=== PATIENT | male | born 1950 | race Caucasian/White ===

== ENCOUNTER 2016-06-28 20:59 | Emergency (ER) | payer MEDICARE ==
[~2016-06-28 20:59] MED LIST: ALDACTONE25 MG PO; BAYER CHEWABLE81 MG PO; FUROSEMIDE20 MG PO; GLUCOPHAGE1000 MG PO; IBUPROFEN200 MG PO; INVOKANA300 MG PO; METOPROLOL TAR100 M1 PO; NEURONTIN600 MG PO; NORVASC10 MG PO; NOVOLIN 70/30 110 ML SC; NOVOLIN R100 U/ML SQ; PLAVIX75 MG PO; TOPROL XL100 MG PO; TRAZODONE HCL150 MG PO; ULTRAM50 MG PO; VITAMIN B-1000 MCG/M IM; WELCHOL625 MG PO; WELLBUTRIN XL150 M1 PO; XANAX1 MG PO; ZETIA10 MG PO
== END 2016-06-29 00:52 | disposition home or self-care (01) ==
LOC: D.ER 20:59
DX: S09.90XA Unspecified injury of head, initial encounter (principal); V59.9XXA Occupant (driver) (passenger) of pick-up truck or van injured in unspecified traffic accident, initial encounter; Y93.89 Activity, other specified; Y92.410 Unspecified street and highway as the place of occurrence of the external cause; S16.1XXA Strain of muscle, fascia and tendon at neck level, initial encounter; S39.012A Strain of muscle, fascia and tendon of lower back, initial encounter; S12.600A Unspecified displaced fracture of seventh cervical vertebra, initial encounter for closed fracture; F17.200 Nicotine dependence, unspecified, uncomplicated

== ENCOUNTER → 2016-07-17 09:42 | Outpatient (CLI) | payer MEDICARE ==
[2016-02-27 10:43] VITALS: BMI 26.8
== END | disposition home or self-care (01) ==
LOC: D.RAD 09:42
DX: S32.009A Unspecified fracture of unspecified lumbar vertebra, initial encounter for closed fracture (principal)

== ENCOUNTER 2016-07-25 18:08 | Inpatient (IN) | payer MEDICARE ==
[~2016-07-25] VITALS: Ht 170.2 cm; Wt 70.9 kg
--- NOTE | ~2016-07-25 | OP ---
PATIENT NAME: MICHELLE CURRY JR MEDICAL RECORD: [id number] :54 LOCATION:D.M2 D.2109 ADMISSION DATE:07/27/16 SURGEON: JAILENE VELAZQUEZ MD DATE OF OPERATION: 08/05/2016 PREOPERATIVE DIAGNOSES: 1. Right foot cellulitis/abscess. 2. Diabetes mellitus. 3. Coronary artery disease. 4. Hypertension. 5. Hyperlipidemia. 6. Chronic obstructive pulmonary disease. 7. Tobacco dependence syndrome. POSTOPERATIVE DIAGNOSES: 1. Right foot cellulitis/abscess. 2. Diabetes mellitus. 3. Coronary artery disease. 4. Hypertension. 5. Hyperlipidemia. 6. Chronic obstructive pulmonary disease. 7. Tobacco dependence syndrome. PROCEDURE: I&D of the right foot. SURGEON: Jailene Velazquez MD REPORT OF PROCEDURE: The right foot was prepped and draped in sterile fashion. A longitudinal incision was made on the distal anterior aspect of the right foot overlying the space between the second and third toe. This patient had a large amount of pressurized purulence present. This was cultured times 2. The area undermined significantly, so we extended the incision, and I could see almost a skeletonization of the tendon and the bones. We irrigated out the wound thoroughly with peroxide and saline solution until we had a good clear return of fluid. We then packed the wound with 2 inch Kerlix dipped in peroxide. This was then covered with 4 x 4's and Kerlix. COMPLICATIONS: None. CONDITION: Stable. ANESTHESIA: General endotracheal. BLOOD LOSS: Minimal. TRANSINT:[id number] Voice Confirmation ID: [id number] DOCUMENT ID: [id number] OPERATIVE REPORT [id number] MICHELLE CURRY JR, CHRISTIAN MD CC: [id number] DICTATION DATE: 08/05/161739 RUBBER PRESS OPERATOR: 08/06/16 0022 ADM IN [address] [place] [address]
[2016-07-25 19:16] LABS: BASOPHILS 0.1 % (0-2); EOSINOPHILS 0.1 % (0-7); HEMATOCRIT 39.4 % (42.0-54.0); HEMOGLOBIN 13.7 g/dL (13.5-17.5); IMMATURE GRANULOCYTES 0.4 % (0-5); LYMPHOCYTES 9.3 % (15-50); MCH 33.9 pg (26.0-34.0); MCHC 34.8 g/dL (31.0-37.0); MCV 97.5 fL (80.0-100.0); MEAN PLATELET VOLUME 12.2 fL (7.4-10.4); MONOCYTES 10.1 % (2-11); RBC 4.04 10x6/uL (4.20-6.10); WBC 12.3 10x3/uL (4.8-10.8)
[2016-07-25 19:20] LABS: PLATELET COUNT 136 10x3/uL (130-400)
[2016-07-25 19:48] LABS: ALKALINE PHOSPHATASE 86 U/L (46-116); ALT (SGPT) 9 U/L (10-68); BILIRUBIN - TOTAL 0.29 mg/dL (0.2-1.3); CALC OSMOLALITY 279 mosm/kg (275-300); CALCIUM 9.9 mg/dL (8.5-10.1); CARBON DIOXIDE 28.1 mmol/L (21.0-32.0); CHLORIDE - SERUM 95 mmol/L (98-107); GLUCOSE 258 mg/dL (74-106); POTASSIUM - SERUM 4.8 mmol/L (3.5-5.1); PROTEIN - SERUM 8.4 g/dL (6.4-8.2); SODIUM 132 mmol/L (136-145); UREA NITROGEN 30 mg/dL (7-18); eGFR NON AFRICAN AMERICAN 80 mL/min (90-120)
--- NOTE | 2016-07-25 21:18 | NUR ---
RECIVED REPORT FROM MERARY Bunn RN.
--- NOTE | 2016-07-25 21:50 | NUR ---
RECIEVED TO ROOM 2109 FROM E.R. VIA WC. VITALS STABLE. IV TO LEFT ARM SL, SITE CLEAN AND DRY. FAMILY AT BED SIDE, BED, LOW CL IN REACH, WILL CONT TO MONITOR.
[2016-07-25] MEDS ORDERED: NORCO 7.5/325 T1 TA1 PO (23:29)
[2016-07-26] VITALS (7 sets, daily range): BP systolic 103–132; BP diastolic 51–74; BMI 29.7
--- NOTE | 2016-07-26 00:18 | NUR ---
SHERIFF'S SERGEANT AT BED SIDE TO OBTAIN VITALS. WILL CONT PLAN OF CARE.
--- NOTE | 2016-07-26 03:54 | NUR ---
UP WITH ASSIST TO BR.
--- NOTE | 2016-07-26 04:15 | NUR ---
PT ASKING FOR PAIN MEDICATION FOR HIS FOOT, PAGE OUT TO DR CARABALLO.
--- NOTE | 2016-07-26 07:05 | NUR ---
RECEIVED REPORT. ASSUMED CARE OF PATIENT. RESTING IN SUPINE POSITION WITH EYES CLOSED. RESP EVEN AND UNLABORED. EASILY AROUSED. TOP OF RIGHT FOOT RED, WARM TO TOUCH WITH SMALL SCRATCH TO TOP CENTER OF FOOT. NO DISTRESS. CALL LIGHT WITHIN REACH.
--- NOTE | 2016-07-26 09:01 | NUR ---
MEDICATED FOR PAIN AT THIS TIME. NO DISTRESS. PAIN TO RIGHT FOOT.
--- NOTE | 2016-07-26 09:24 | NUR ---
PATIENTS DAUGHTER HERE INQUIRING HOW HER FATHER DID LAST NIGHT. SHE STATES SHE IS WONDERING BECAUSE HE WAS CONFUSED WHEN HE CAME IN YESTERDAY. SHE STATES THAT PATIENT WENT TO SEE IN [place] ON WEDNESDAY AND INSTEAD OF GOING AND GETTING HIS MEDICINE, PATIENT WENT HOME AND LAID DOWN. PRIOR TO LAYING DOWN PATIENT LEFT HIS PHONE IN THE LIVING ROOM. PATIENT WAS UNABLE TO GET OOB AFTER LYING DOWN. PATIENT HAD INCONTINENT EPISODE ON BED AT HOME. PATIENT ROLLED OUT OF BED AND CRAWLED TO LIVING ROOM TO GET HIS PHONE AND THAT IS WHEN HE STARTED CALLING HIS DAUGHTERS FOR HELP. PATIENTS DAUGHTER STATES THAT HIS BLOOD GLUCOSE LEVEL IS ALWAYS ELEVATED IN 400-500 RANGE AND THAT HE FREQUENTLY HAS A UTI DUE TO THE GLUCOSE. SHE ALSO STATES THAT PATIENT CAN BECOME AGGRESSIVE AND MEAN IF HYDROCODONES ARE ADMINISTERED TO PATIENT. THANKED DAUGHTER FOR ALL OF THIS INFORMATION. UA TAKEN TO LAB AND URINE CULTURE ADDED. PATIENT RESTING IN BED AT THIS TIME. DAUGHTER AT BEDSIDE. CALL LIGHT WITHIN REACH. NO DISTRESS. NO AGGRESSIVE BEHAVIORS.
[2016-07-26 09:46] LABS: APPEARANCE CLEAR (CLEAR); BILIRUBIN NEGATIVE (NEGATIVE); COLOR YELLOW (YELLOW); GLUCOSE 500 mg/dL (NEGATIVE); KETONE SMALL mg/dL (NEGATIVE); LEUKOCYTE ESTERASE NEGATIVE (NEGATIVE); NITRITE NEGATIVE (NEGATIVE); PROTEIN NEGATIVE (NEGATIVE); SPECIFIC GRAVITY 1.015 (1.005-1.020); UROBILINOGEN NORMAL (NORMAL)
--- NOTE | 2016-07-26 12:29 | NUR ---
FSBS 308. 8 UNITS HUMALOG ADMINISTERED AT THIS TIME.
--- NOTE | 2016-07-26 14:37 | NUR ---
MEDICATED FOR PAIN AT THIS TIME. NO DISTRESS.
--- NOTE | 2016-07-26 15:37 | NUR ---
PATIENT LEFT UNIT VIA WHEELCHAIR FOR CT OF NECK. NO DISTRESS UPON LEAVING UNIT.
--- NOTE | 2016-07-26 17:29 | NUR ---
MEDICATED FOR TEMP 102.8 AT THIS TIME.
--- NOTE | 2016-07-26 17:32 | NUR ---
PAGED TO INFORM HIM OF THE SPIKE IN TEMP OF 102.8 AND ASK IF HE WANTS BLOOD CULTURES DRAWN. AWAITING RETURN CALL
--- NOTE | 2016-07-26 17:34 | NUR ---
RECEIVED CALL BACK FROM AND RECEIVED ORDERS TO CONSULT . INFORMED THAT BLODD CULTURES WERE DRAWN YESTERDAY AT 1900 BUT PATIENT JUST NOW SPIKING TEMP. INFORMED THAT PATIENT WAS MEDICATED WITH TYLENOL FOR TEMP OF 102.8. THANKED FOR RETURNING CALL.
--- NOTE | 2016-07-26 17:56 | NUR ---
FSBS 234. 4 UNITS HUMALOG ADMINISTERED PER SLIDING SCALE.
--- NOTE | 2016-07-26 18:20 | NUR ---
MEDICATED FOR PAIN AT THIS TIME. NO DISTRESS.
--- NOTE | 2016-07-26 18:33 | NUR ---
TEMP REASSESSED. ORAL TEMP 102.4
--- NOTE | 2016-07-26 19:36 | NUR ---
RESUMED CARE OF PT, LYING IN BED RESPIRATIONS EVEN AND UNLABORED ON 2LPM VIA NC. LEFT FOREATM INFUSING NS @ 75. RIGHT FOOT IS RED AND TENDER TO THE TOUCH. OPEN TO AIR. NO NEEDS VOICED AT THIS TIME. CALL LIGHT IN REACH. WILL CONTINUE TO MONITOR. SEE NURSE ASSESSMENT.
[2016-07-27] VITALS: BP 121/68
[2016-07-27 04:00] VITALS: BP 106/49
[2016-07-27 05:33] LABS: BASOPHILS 0.1 % (0-2); EOSINOPHILS 0.3 % (0-7); HEMATOCRIT 38.1 % (42.0-54.0); HEMOGLOBIN 12.9 g/dL (13.5-17.5); IMMATURE GRANULOCYTES 0.4 % (0-5); LYMPHOCYTES 11.4 % (15-50); MCH 33.3 pg (26.0-34.0); MCHC 33.9 g/dL (31.0-37.0); MCV 98.4 fL (80.0-100.0); MEAN PLATELET VOLUME 11.6 fL (7.4-10.4); MONOCYTES 10.2 % (2-11); NEUTROPHILS 77.6 % (40-80); PLATELET COUNT 169 10x3/uL (130-400); RBC 3.87 10x6/uL (4.20-6.10); RDW 12.3 % (11.5-14.5); WBC 11.7 10x3/uL (4.8-10.8)
--- NOTE | 2016-07-27 05:49 | NUR ---
ULTRAM GIVEN FOR RIGHT FOOT PAIN, NO CHANGES FROM PREVIOUS ASSESSMENT. CALL LIGHT IN REACH. WILL CONTINUE TO MONITOR.
[2016-07-27 06:00] LABS: ALBUMIN 2.4 g/dL (3.4-5.0); ALKALINE PHOSPHATASE 73 U/L (46-116); ALT (SGPT) 9 U/L (10-68); BILIRUBIN - TOTAL 0.38 mg/dL (0.2-1.3); CALC OSMOLALITY 279 mosm/kg (275-300); CALCIUM 9.3 mg/dL (8.5-10.1); CARBON DIOXIDE 25.9 mmol/L (21.0-32.0); CHLORIDE - SERUM 98 mmol/L (98-107); CHOLESTEROL, TOTAL 90 mg/dL (0-200); CREATININE - SERUM 0.9 mg/dL (0.6-1.3); HDL CHOLESTEROL 18 mg/dL (32-96); LDL CHOLESTEROL 48 mg/dL (0-100); LDL-HDL RATIO 2.7 ratio (1.5-3.5); POTASSIUM - SERUM 4.4 mmol/L (3.5-5.1); PROTEIN - SERUM 7.8 g/dL (6.4-8.2); SODIUM 135 mmol/L (136-145); TRIGLYCERIDE 121 mg/dL (30-200); UREA NITROGEN 27 mg/dL (7-18); eGFR NON AFRICAN AMERICAN > 90 mL/min (90-120)
[2016-07-27 06:10] LABS: GLUCOSE 192 mg/dL (74-106)
[2016-07-27 07:55] VITALS: BP 125/62
--- NOTE | 2016-07-27 11:36 | NUR ---
WOUND CARE CONSULT: RT DORSAL FOOT HAS 3.5CM X 4CM RUPTURED BLISTER. GENTLY CLEANSED AND DRIED. COVERED WITH ADAPTIC TOUCH, PROMOGRAN MOISTENED WITH SALINE & COVERED WITH TIELLE DRESSING. THIS WON'T REQUIRE A DRESSING CHANGE UNTIL (1) THE OUTSIDE PAD OF THE TIELLE DRESSING IS COMPLETELY STAINED WITH DRAINAGE OR (2) DRESSING HAS BEEN IN PLACE FOR 7 DAYS. WOUND CARE WILL CONTINUE TO MONITOR.
[2016-07-27 12:00] VITALS: BP 106/57
[2016-07-27 12:16] VITALS: Ht 170.2 cm; Wt 70.9 kg
--- NOTE | 2016-07-27 12:19 | NUR ---
FSBS 400. 10 UNITS SS INSULIN GIVEN PER SS. PT IS RESTING QUIETLY IN BED WITH DAUGHTER AT BEDSIDE. PT IS VERY TIRED AND CLAMMY/DIAPHORETIC. TYLENOL WAS GIVEN EARLIER FOR LOW GRADE TEMP @99.7. WILL CTM CLOSELY FOR FEVER.
[2016-07-27 16:00] VITALS: BP 114/49
--- NOTE | 2016-07-27 16:00 | NUR ---
ANCEF ANBX DUE BUT NOT AVAILABLE IN [facility]. CALLED PHARMACY AND WILL WAIT FOR TI.
--- NOTE | 2016-07-27 17:53 | NUR ---
ANCEF STILL UNAVAILABLE CALLED PHARMACY AND THEY STATED THEY WILL BRING IT UP NOW. WILL HAVE TO RE-TIME ANBX THOUGH.
--- NOTE | 2016-07-27 18:42 | NUR ---
ANCEF STILL NOT AVAILABLE IN [facility], CALLED PHARMACY ONE LAST TIME BEFORE MY SHIFT IS OVER. THEY ARE BRINGING IT NOW THEY STATED.
--- NOTE | 2016-07-27 19:20 | NUR ---
ALERT/AWAKE WATCHING TV. ORIENTED X 4. IV IN L FA INTACT SL. RT FOOT WITH DRSG C/D/I. REDNESS AROUND DRSG ON FOOT AND GOING UP PART OF LOWER LEG. JUAN CARLOS LINE AROUND THE REDNESS TO OBSERVE ANY INCREASE IN REDNESS. RATES PAIN LEVEL AT 3 ON NUMBER SCALE. REQUESTED A LEMON-AKI[place]AK SODA. ORIENTED TO CALL LIGHT FOR ANY NEEDS OR DISCOMFORTS.
--- NOTE | 2016-07-27 22:15 | NUR ---
CALLED [facility] RE: [facility] NOT HAVING ANCEF 2GM.
[2016-07-28] VITALS: BP 110/46
--- NOTE | 2016-07-28 01:27 | NUR ---
RECHECKED BLOOD SUGAR WITH GLUCOMETER AT 222.
[2016-07-28 05:35] LABS: BASOPHILS 0.2 % (0-2); EOSINOPHILS 0.5 % (0-7); HEMATOCRIT 35.8 % (42.0-54.0); HEMOGLOBIN 12.2 g/dL (13.5-17.5); IMMATURE GRANULOCYTES 0.6 % (0-5); MCH 33.2 pg (26.0-34.0); MCHC 34.1 g/dL (31.0-37.0); MCV 97.3 fL (80.0-100.0); MEAN PLATELET VOLUME 11.2 fL (7.4-10.4); MONOCYTES 10.4 % (2-11); NEUTROPHILS 72.3 % (40-80); PLATELET COUNT 191 10x3/uL (130-400); RBC 3.68 10x6/uL (4.20-6.10); RDW 12.2 % (11.5-14.5); WBC 12.1 10x3/uL (4.8-10.8)
[2016-07-28 05:38] VITALS: BP 119/51
[2016-07-28 06:36] LABS: CALC OSMOLALITY 274 mosm/kg (275-300); CARBON DIOXIDE 28.1 mmol/L (21.0-32.0); CHLORIDE - SERUM 98 mmol/L (98-107); CREATININE - SERUM 0.9 mg/dL (0.6-1.3); POTASSIUM - SERUM 4.3 mmol/L (3.5-5.1); SODIUM 135 mmol/L (136-145); UREA NITROGEN 21 mg/dL (7-18); eGFR NON AFRICAN AMERICAN > 90 mL/min (90-120)
[2016-07-28 06:37] LABS: GLUCOSE 136 mg/dL (74-106)
--- NOTE | 2016-07-28 07:14 | NUR ---
RECEIVED REPORT FROM ACID CORRECTION HAND NURSE, BOB VALDES. PT IN BED, DENIES ANY NEEDS AT THIS TIME. CALL LIGHT IN REACH, NAD NOTED, WILL CONTINUE TO MONITOR.
--- NOTE | 2016-07-28 09:57 | NUR ---
ADMINISTERED MORNING MEDICATIONS, HELD BP MEDS FOR LOW BP THIS AM. PT UP TO CHAIR, AT THIS TIME. DENIES ANY NEEDS, CALL LIGHT IN REACH, NAD NOTED, WILL CONTINUE TO MONITOR.
[2016-07-28 12:00] VITALS: BP 138/66
--- NOTE | 2016-07-28 12:19 | NUR ---
BLOOD SUGAR OF 356, 10 UNITS OF HUMALOG PER S/S. PT UP TO SIDE OF BED, TALKING ON THE PHONE WITH FAMILY. ANCEF IVPB STARTED INFUSING AT THIS TIME. PT DENIES ANY NEEDS AT THIS TIME. CALL LIGHT IN REACH, NAD NOTED, WILL CONTINUE TO MONITOR.
[2016-07-28 16:28] VITALS: BP 130/54
--- NOTE | 2016-07-28 19:37 | NUR ---
ALERT/AWAKE. DENIES PAIN OR ANY NEEDS. ASSESSED RT FOOT AND SHOWS REDNESS NOT EXTENDING BEYOND LINE DRAWN AROUND IT YESTERDAY. DRSG IS INTACT WITH SMALL AMT OF EXUDATE NOTED. IV IN L FA INTACT SL. DID NOT WANT SCD'S ON. DENIES PAIN OR ANY NEEDS. CALL LIGHT IN REACH.
[2016-07-28 20:00] VITALS: BP 145/72
--- NOTE | 2016-07-28 22:05 | NUR ---
ADMIN SCHED MEDS AND NORCO 7.5 PO PER REQUEST FOR C/O LEG/FOOT PAIN LEVEL 8 ON NUMBER SCALE. NO OTHER NEEDS VOICED.
[2016-07-29] VITALS: BP 121/60
--- NOTE | 2016-07-29 02:11 | NUR ---
RESTING ON LEFT SIDE WITH EYES CLOSED SNORING LIGHTLY. RR 18 EVEN U/L. NO S/S OF PAIN OR DISCOMFORT. BED IS LOW WITH SR UP X2. CALL LIGHT IN REACH.
[2016-07-29 04:00] VITALS: BP 124/53
[2016-07-29 05:50] LABS: BASOPHILS 0.1 % (0-2); EOSINOPHILS 1.1 % (0-7); HEMATOCRIT 39.4 % (42.0-54.0); HEMOGLOBIN 13.5 g/dL (13.5-17.5); IMMATURE GRANULOCYTES 0.5 % (0-5); LYMPHOCYTES 13.5 % (15-50); MCH 33.4 pg (26.0-34.0); MCHC 34.3 g/dL (31.0-37.0); MCV 97.5 fL (80.0-100.0); MEAN PLATELET VOLUME 10.9 fL (7.4-10.4); MONOCYTES 6.9 % (2-11); NEUTROPHILS 77.9 % (40-80); RBC 4.04 10x6/uL (4.20-6.10); RDW 12.1 % (11.5-14.5); WBC 13.4 10x3/uL (4.8-10.8)
[2016-07-29 06:14] LABS: PLATELET COUNT 249 10x3/uL (130-400)
[2016-07-29 06:22] LABS: CALC OSMOLALITY 278 mosm/kg (275-300); CALCIUM 9.5 mg/dL (8.5-10.1); CARBON DIOXIDE 28.1 mmol/L (21.0-32.0); CHLORIDE - SERUM 98 mmol/L (98-107); CREATININE - SERUM 0.8 mg/dL (0.6-1.3); GLUCOSE 168 mg/dL (74-106); POTASSIUM - SERUM 4.4 mmol/L (3.5-5.1); SODIUM 136 mmol/L (136-145); THYROID STIMULATING HORMONE 2.42 uIU/mL (0.36-3.74); UREA NITROGEN 22 mg/dL (7-18); eGFR NON AFRICAN AMERICAN > 90 mL/min (90-120)
[2016-07-29 08:10] VITALS: BP 134/69
--- NOTE | 2016-07-29 08:20 | NUR ---
AM ROUNDS - PT SITTING ON THE SIDE OF THE BED EATING BREAKFAST. PT HAS A LOW FEVER. WILL GIVE TYLENAL. NO OTHER NEEDS AT THIS TIME. WILL CONTINUE TO MONITOR.
--- NOTE | 2016-07-29 11:11 | NUR ---
WOUND CARE REASSESSMENT: WOUND ON DORSAL FOOT LEFT IS MACERATED AND PEELING WITH A MODERATE AMOUNT OF SEROUS DRAINAGE. THERE IS NO ODOR. THERE IS TENDERNESS. THE FOOT IS RED AND EDEMATOUS. GENTLY CLEANSED AND PATTED DRY. THE SKIN FROM THE RUPTURED BLISTER IS PEELING AWAY LEAVING RED/SHINY SKIN. APPLIED MAXORB AG AND A NON-ADHERENT GAUZE OVER WOUND. CUSHIONED WITH 4X4S AND SECURED WITH LOOSELY WRAPPED KERLIX. PT TOLERATED WELL. RECOMMEND DAILY DRESSING CHANGES.
[2016-07-29 12:17] VITALS: BP 134/84
[2016-07-29 16:30] VITALS: BP 170/53
--- NOTE | 2016-07-29 19:35 | NUR ---
PT RECEIVED LYING IN BED ON LEFT SIDE RESTING QUIETLY AT THIS TIME WITH EYES CLOSED. AROUSED EASILY. PT AAOX3. ASSESSMENT COMPLETED PER FLOW SHEET AT THIS TIME. PT DENIES NEEDS. BED LOW. PHONE AND CALL LIGHT IN REACH. SRX2.
[2016-07-29 20:00] VITALS: BP 125/66
--- NOTE | 2016-07-29 21:22 | NUR ---
PM MEDS GIVEN AT THIS TIME. PT DENIES NEEDS. BED LOW. PHONE AND CALL LIGHT IN REACH. SRX2.
--- NOTE | 2016-07-29 23:13 | NUR ---
NORCO PO ADMINISTERED AT THIS TIME FOR PAIN PT RATES 10/29. PT DENIES OTHER NEEDS. BED LOW. PHONE AND CALL LIGHT IN REACH. SRX2.
[2016-07-30] VITALS: BP 124/58
--- NOTE | 2016-07-30 00:32 | NUR ---
4 UNITS HUMALOG GIVEN TO R ARM AT THIS TIME. PT TOLERATED WELL DENIES NEEDS. BED LOW. PHONE AND CALL LIGHT IN REACH. SRX2.
--- NOTE | 2016-07-30 02:49 | NUR ---
PT RESTING QUIETLY AT THIS TIME WITH EYES CLOSED. RESPIRATIONS EVEN, NON-LABORED. NO ACUTE DISTRESS NOTED AT THIS TIME. BED LOW. PHONE AND CALL LIGHT IN REACH. SRX2.
[2016-07-30 04:00] VITALS: BP 120/55
[2016-07-30 05:11] LABS: BASOPHILS 0.1 % (0-2); EOSINOPHILS 1.3 % (0-7); HEMATOCRIT 36.8 % (42.0-54.0); HEMOGLOBIN 12.4 g/dL (13.5-17.5); IMMATURE GRANULOCYTES 0.4 % (0-5); LYMPHOCYTES 12.4 % (15-50); MCH 32.8 pg (26.0-34.0); MCHC 33.7 g/dL (31.0-37.0); MCV 97.4 fL (80.0-100.0); MEAN PLATELET VOLUME 10.9 fL (7.4-10.4); NEUTROPHILS 78.8 % (40-80); PLATELET COUNT 259 10x3/uL (130-400); RBC 3.78 10x6/uL (4.20-6.10); WBC 13.5 10x3/uL (4.8-10.8)
[2016-07-30 05:36] LABS: CALC OSMOLALITY 274 mosm/kg (275-300); CALCIUM 9.1 mg/dL (8.5-10.1); CARBON DIOXIDE 26.6 mmol/L (21.0-32.0); CHLORIDE - SERUM 99 mmol/L (98-107); CREATININE - SERUM 0.7 mg/dL (0.6-1.3); GLUCOSE 141 mg/dL (74-106); POTASSIUM - SERUM 4.7 mmol/L (3.5-5.1); SODIUM 135 mmol/L (136-145); UREA NITROGEN 22 mg/dL (7-18); eGFR NON AFRICAN AMERICAN > 90 mL/min (90-120)
[2016-07-30 08:00] VITALS: BP 129/65
--- NOTE | 2016-07-30 08:08 | NUR ---
AM ROUNDS - PT APPEARS TO BE SLEEPING ON RIGHT SIDE WITH EQUAL AND NON LABORED BREATHS. DRESSING TO RIGHT FOOT. 1 NON SKID SOCK ON. WILL CONTINUE TO MONITOR.
[2016-07-30 12:00] VITALS: BP 95/44
--- NOTE | 2016-07-30 15:08 | NUR ---
Nutrition follow-up: Diet: ADA consistent CHO PO intake 100% of meals Labs reviewed Wt: 187# PO intake good at this time. Glucose elevated probably due to foot infection. RDN following.
[2016-07-30 16:00] VITALS: BP 116/59
[2016-07-30 20:00] VITALS: BP 128/61
--- NOTE | 2016-07-30 23:30 | NUR ---
RIGHT FOOT DRESSING REMOVED. CLEANSED WITH DERMAL WOUND CLEANSER ORDERED. MAXSORB AG PLACED, COVERED WITH NON ADHERRANT DRESSING. 4X4'S PLACED TO PAD WOUND AND SECURED WITH KERLIX. TOP OF FOOT EXTREMELY REDDENED. WOUNDS APPEAR TO HAVE BEEN BLISTERS THAT HAVE OPENED. PT C/O PAIN FREQ TO WOUND SITE. MEDICATED ORDERED. WILL CONT TO MONITOR.
[2016-07-31 04:00] VITALS: BP 140/64
[2016-07-31 05:47] LABS: BASOPHILS 0.1 % (0-2); EOSINOPHILS 1.2 % (0-7); HEMATOCRIT 35.6 % (42.0-54.0); HEMOGLOBIN 12.3 g/dL (13.5-17.5); IMMATURE GRANULOCYTES 0.4 % (0-5); LYMPHOCYTES 11.8 % (15-50); MCH 33.3 pg (26.0-34.0); MCHC 34.6 g/dL (31.0-37.0); MCV 96.5 fL (80.0-100.0); MEAN PLATELET VOLUME 10.8 fL (7.4-10.4); MONOCYTES 6.5 % (2-11); PLATELET COUNT 281 10x3/uL (130-400); RBC 3.69 10x6/uL (4.20-6.10); RDW 12.1 % (11.5-14.5); WBC 11.9 10x3/uL (4.8-10.8)
[2016-07-31 06:02] LABS: CALC OSMOLALITY 272 mosm/kg (275-300); CARBON DIOXIDE 27.2 mmol/L (21.0-32.0); CHLORIDE - SERUM 98 mmol/L (98-107); CREATININE - SERUM 0.8 mg/dL (0.6-1.3); GLUCOSE 140 mg/dL (74-106); POTASSIUM - SERUM 4.4 mmol/L (3.5-5.1); SODIUM 134 mmol/L (136-145); UREA NITROGEN 20 mg/dL (7-18); eGFR NON AFRICAN AMERICAN > 90 mL/min (90-120)
--- NOTE | 2016-07-31 07:40 | NUR ---
AM ROUNDS - PT IS AWAKE AND ALERT. C/O RIGHT FOOT PAIN. PAGE INTO DR. CARABALLO TO MED CHANGE. PT HAS NORCO ORDERED BUT STATES HE CAN NOT TAKE THE NORCO, STATES HE NORMALY TAKES TRAMADOL FOR PAIN. WILL CONTINUE TO MONITOR. DR. CARABALLO CALLED BACK WITH NEW ORDERS
[2016-07-31 08:07] VITALS: BP 120/56
[2016-07-31 16:00] VITALS: BP 95/46
[2016-07-31 19:00] VITALS: BP 129/61
--- NOTE | 2016-07-31 19:35 | NUR ---
PT RECEIVED IN BED WATCHING TV AND TALKING ON CELL PHONE. NO COMPLAINTS MADE AT THIS TIME. CALL LIGHT IN REACH. WILL CONTINUE TO OBSERVE.
--- NOTE | 2016-07-31 22:15 | NUR ---
PT IN BED WITH EYES CLOSED AND CHEST RISING. EASILY AROUSED TO VERBAL STIMULI. MEDICATIONS GIVEN PER MAY. NO CONCERNS MADE KNOWN. CALL LIGHT IN REACH. WILL CONTINUE TO OBSERVE.
[2016-08-01] VITALS: BP 132/60
--- NOTE | 2016-08-01 02:27 | NUR ---
PT IN BED WITH EYES CLOSED AND CHEST RISING. RESPIRATIONS EVEN AND UNLABORED. NO CONCERNS NOTED AT THIS TIME. CALL LIGHT IN REACH. WILL CONTINUE TO OBSERVE.
[2016-08-01 04:00] VITALS: BP 118/46
[2016-08-01 04:37] LABS: BASOPHILS 0.1 % (0-2); EOSINOPHILS 1.1 % (0-7); HEMATOCRIT 35.8 % (42.0-54.0); HEMOGLOBIN 12.2 g/dL (13.5-17.5); IMMATURE GRANULOCYTES 0.5 % (0-5); LYMPHOCYTES 13.2 % (15-50); MCHC 34.1 g/dL (31.0-37.0); MCV 96.8 fL (80.0-100.0); MEAN PLATELET VOLUME 10.4 fL (7.4-10.4); MONOCYTES 5.8 % (2-11); NEUTROPHILS 79.3 % (40-80); PLATELET COUNT 320 10x3/uL (130-400); WBC 12.6 10x3/uL (4.8-10.8)
[2016-08-01 04:57] LABS: CALC OSMOLALITY 272 mosm/kg (275-300); CALCIUM 9.3 mg/dL (8.5-10.1); CARBON DIOXIDE 28.1 mmol/L (21.0-32.0); CHLORIDE - SERUM 99 mmol/L (98-107); CREATININE - SERUM 0.8 mg/dL (0.6-1.3); GLUCOSE 138 mg/dL (74-106); POTASSIUM - SERUM 4.5 mmol/L (3.5-5.1); SODIUM 134 mmol/L (136-145); UREA NITROGEN 20 mg/dL (7-18); eGFR NON AFRICAN AMERICAN > 90 mL/min (90-120)
--- NOTE | 2016-08-01 07:00 | NUR ---
RECEIVED REPORT. ASSUMED CARE OF PATIENT. CALL LIGHT WITH IN REACH. NO DISTRESS. DENIES NEEDS AT THIS TIME.
[2016-08-01 08:00] VITALS: BP 117/59
--- NOTE | 2016-08-01 09:15 | NUR ---
MEDICATED FOR PAIN AT THIS TIME. NO DISTRESS. CALL LIGHT WITHIN REACH.
[2016-08-01 12:00] VITALS: BP 110/60
--- NOTE | 2016-08-01 13:15 | NUR ---
DRESSING CHANGE TO RIGHT FOOT PROVIDED AT THIS TIME. TOLERATED DRESSING CHANGE WELL. MEDICATED FOR PAIN AT THIS TIME. NO DISTRESS.
[2016-08-01 16:00] VITALS: BP 117/60
--- NOTE | 2016-08-01 16:30 | NUR ---
FSBS 181. 2 UNITS HUMALOG ADMINISTERED PER SLIDING SCALE.
[2016-08-01 19:00] VITALS: BP 137/70
--- NOTE | 2016-08-01 20:12 | NUR ---
INITIAL ROUNDS COMPLETEDA T 1909 HRS. FAMILY AT BEDSIDE. ASSESSMENT COMPLETED AT 1944 HRS. IV TO RFA SL. LUNGS CTA. DRESSING TO R FOOT CLEAN, DRYA ND INTCT. REDDENED AREA NOTRED TO MID TOES AND ABOVE ANKLE. MARKED WITH A MARKER. PALPABLE PEDAL PULSES. R ARCHEOLOGIST TO TOUCH. BRISK CAP REFILL. ULTRAM 100MG PO GIVNE AT 1950 FOR C/O FOOT PAIN. WILL CONTINUE TO MONITOR. S RUP X2, CALL LIGHT WITHIN REACH.
--- NOTE | 2016-08-01 23:10 | NUR ---
PM MEDS GIVEN PER ORDES. PT CURRETNLY RESTING WITH EYES CLOSED. RESP EVEN AND REGULAR. SR UP X2, CALL LIGHT WITHIN REACH.
[2016-08-02] VITALS: BP 147/54
--- NOTE | 2016-08-02 00:18 | NUR ---
FSBS 179. 2 UNITS HUMALOG GIVEN SUB-Q TO UPPER L ARM. WILL CONTINUE TO MONITOR. SR UP X2, CALL LIGHT WITHIN REACH.
--- NOTE | 2016-08-02 00:58 | NUR ---
TEMP 101.9. TYLENOL 650MG PO GIVEN. COOL WASHCLOTH APPLIED TO FOREHEAD. PT REFUSES AC TO BE TURNED ON. LAB CALLED TO DRAW BC PER ORDERS. WILL CONTINUE TO MONITOR.
--- NOTE | 2016-08-02 01:56 | NUR ---
PT RESTING WITH EYES CLOSED. RESP EVEN ADN REGULAR. SR UP X2, CALL LIGHT WITHIN REACH.
--- NOTE | 2016-08-02 03:40 | NUR ---
PT RESTIGN WITHEYES CLOSED. RESP EVEN AND REGULAR. SR UP X2, CALL LIGHT WITHIN REACGH.
[2016-08-02 04:23] VITALS: BP 129/48
[2016-08-02 04:54] LABS: BASOPHILS 0.1 % (0-2); EOSINOPHILS 1.2 % (0-7); HEMATOCRIT 35.9 % (42.0-54.0); HEMOGLOBIN 12.3 g/dL (13.5-17.5); IMMATURE GRANULOCYTES 0.4 % (0-5); LYMPHOCYTES 13.3 % (15-50); MCH 33.1 pg (26.0-34.0); MCHC 34.3 g/dL (31.0-37.0); MCV 96.5 fL (80.0-100.0); MEAN PLATELET VOLUME 10.4 fL (7.4-10.4); MONOCYTES 5.5 % (2-11); NEUTROPHILS 79.5 % (40-80); PLATELET COUNT 333 10x3/uL (130-400); RBC 3.72 10x6/uL (4.20-6.10); RDW 11.9 % (11.5-14.5); WBC 13.4 10x3/uL (4.8-10.8)
[2016-08-02 05:06] LABS: CALC OSMOLALITY 274 mosm/kg (275-300); CALCIUM 8.9 mg/dL (8.5-10.1); CARBON DIOXIDE 25.3 mmol/L (21.0-32.0); CHLORIDE - SERUM 98 mmol/L (98-107); CREATININE - SERUM 0.7 mg/dL (0.6-1.3); GLUCOSE 139 mg/dL (74-106); POTASSIUM - SERUM 4.3 mmol/L (3.5-5.1); SODIUM 135 mmol/L (136-145); UREA NITROGEN 21 mg/dL (7-18); eGFR NON AFRICAN AMERICAN > 90 mL/min (90-120)
--- NOTE | 2016-08-02 06:00 | NUR ---
TEMP LESS THEN 100 THIS AM. DENIES ANY DISCOMFORT AT THIS TIME. NEEDS MET; WILL CONTINUE TOMONITOR.
--- NOTE | 2016-08-02 07:05 | NUR ---
RECEIVED REPORT. ASSUMED CARE OF PATIENT. RESTING IN SUPINE POSITION WITH EYES OPEN. RESP EVEN AND UNLAOBRED. REDNESS TO RIGHT FOOT MARKED. PATIENT REPORTS PAIN TO RIGHT FOOT EXTENDING UP TO RIGHT KNEE. PATIENT WAS ADMINISTERED TRAMADOL LESS THAN ONE HOUR PRIOR TO RECEIVING REPORT. CALL LIGHT WITHIN REACH. NO DISTRESS.
[2016-08-02 08:00] VITALS: BP 130/70
[2016-08-02 12:00] VITALS: BP 102/68
--- NOTE | 2016-08-02 12:32 | NUR ---
FSBS 256. 6 UNITS HUMALOG ADMINISTERED PER SLIDING SCALE. NO DISTRESS. CONSUMING NOON MEAL AT THIS TIME.
--- NOTE | 2016-08-02 12:36 | NUR ---
MEDICATED FOR PAIN AT THIS TIME. NO DISTRESS.
--- NOTE | 2016-08-02 16:38 | NUR ---
WOUND CARE PROVIDED TO RIGHT FOOT AT THIS TIME. SKIN NOTED TO BE PEELING FROM TOP OF FOOT. SMALL AREAS OF DRAINAGE NOTED TO HAVE BEEN ABSORBED AND DRIED ON DRESSING. TOLERATED DRESSING CHANGE WELL. NO DISTRESS.
--- NOTE | 2016-08-02 17:36 | NUR ---
FSBS 159. 2 UNITS HUMALOG ADMINISTERED PER SLIDING SCALE. NO DISTRESS. CONSUMING PM MEAL AT THIS TIME.
--- NOTE | 2016-08-02 17:41 | NUR ---
MEDICATED FOR PAIN AT THIS TIME. NO DISTRESS.
[2016-08-02 20:23] VITALS: BP 113/53
--- NOTE | 2016-08-02 22:54 | NUR ---
INITIAL ROUNDS COMPLETEDA T 1920 HRS. PT RESTING WITH EYES CLOSED. RESP EVEN AND REGULAR. ASSESSMENT COMPLETED AT 1950 HRS. VSS. IV TO RFA SL. LUNGS CTA. R FOOT DRESSING CLEAN, DRY AND INTACT. REDDENED AREA NOTED TO R TOES AND R ANKLE ABOVE DRESSING. PALPBALE POSTERIOR TIBIAL PULSE. R TOENAILS WITH BRISK CAP REFILL. PM MEDS GIVEN PER ORDERS. ULTRAM 100MG PO GIVNE FOR C/O R FOOT PAIN AT 2210 HRS. PT CURRENTLY RESTING WITH EYES CLOSED. RESP EVEN AND REGULAR. SR UP X2, CALL LIGHT WITHIN REACH.
[2016-08-02 23:59] VITALS: BP 124/68
--- NOTE | 2016-08-03 00:24 | NUR ---
FSBS 187. HUMALOG 2 UNITS GIVEN SUB-Q TO UPPER R ARM. WILL CONTINUE TO MONITOR.
--- NOTE | 2016-08-03 02:33 | NUR ---
PT RESTING WITH EYES CLOSED. RESP EVEN AND REGULAR. SR UP X2,CALL LIGHT WITHIN REACH.
[2016-08-03 04:46] VITALS: BP 139/62
--- NOTE | 2016-08-03 04:46 | NUR ---
ULTRAM 100MG PO GIVEN FPR C/O R FOOT PAIN. WILL CONTINUE TO MONITOR.
[2016-08-03 05:09] LABS: BASOPHILS 0.1 % (0-2); EOSINOPHILS 1.2 % (0-7); HEMATOCRIT 36.5 % (42.0-54.0); HEMOGLOBIN 12.5 g/dL (13.5-17.5); IMMATURE GRANULOCYTES 0.5 % (0-5); LYMPHOCYTES 13.1 % (15-50); MCHC 34.2 g/dL (31.0-37.0); MCV 96.3 fL (80.0-100.0); MEAN PLATELET VOLUME 9.9 fL (7.4-10.4); MONOCYTES 5.1 % (2-11); PLATELET COUNT 387 10x3/uL (130-400); RBC 3.79 10x6/uL (4.20-6.10); WBC 15.1 10x3/uL (4.8-10.8)
[2016-08-03 05:11] LABS: CALC OSMOLALITY 270 mosm/kg (275-300); CALCIUM 9.5 mg/dL (8.5-10.1); CARBON DIOXIDE 25.3 mmol/L (21.0-32.0); CHLORIDE - SERUM 97 mmol/L (98-107); CREATININE - SERUM 0.7 mg/dL (0.6-1.3); GLUCOSE 136 mg/dL (74-106); POTASSIUM - SERUM 4.5 mmol/L (3.5-5.1); SODIUM 133 mmol/L (136-145); UREA NITROGEN 22 mg/dL (7-18); eGFR NON AFRICAN AMERICAN > 90 mL/min (90-120)
--- NOTE | 2016-08-03 06:09 | NUR ---
VSS THROUGHOUT NIGHT. PT STATES ULTRAM NOT REALLY CONTROLLING FOOT PAIN. AM FSBS 136. NO COVERAGE NEEDED. NEEDS MET; WILL CONTINUE TO MONITOR.
[2016-08-03 08:36] VITALS: BP 118/60
[2016-08-03 11:38] VITALS: BP 126/67
--- NOTE | 2016-08-03 13:52 | NUR ---
Nutrition follow-up: Diet: ADA cons CHO PO intake 100% most meals Labs reviewed RDN following.
[2016-08-03 15:43] VITALS: BP 138/74
--- NOTE | 2016-08-03 19:50 | NUR ---
ALERT/AWAKE WATCHING TV. RATES PAIN LEVEL OF RT FOOT/LEG AT 6 ON NUMBER SCALE. IV IN L FA INTACT SL. CALL LIGHT AND BEDSIDE TABLE WITH PERSONAL ITEMS IN REACH.
[2016-08-03 20:00] VITALS: BP 136/62
--- NOTE | 2016-08-03 21:32 | NUR ---
AWAKE WATCHING TV. ADMIN SCHED MEDS. REQUESTED LIGHTS OFF AND DOOR CLOSED TO SLEEP.
[2016-08-04 00:59] VITALS: BP 114/69
--- NOTE | 2016-08-04 01:25 | NUR ---
ADMIN TRAMADOL PO PER REQUEST FOR C/O FOOT/LEG PAIN LEVEL 9 ON NUMBER SCALE. CHECKED BLOOD SUGAR AT 196, ADMIN 2 UNITS HUMALOG. NO OTHER NEEDS VOICED.
[2016-08-04 04:16] VITALS: BP 121/77
[2016-08-04 05:19] LABS: BASOPHILS 0.1 % (0-2); EOSINOPHILS 0.9 % (0-7); HEMOGLOBIN 12.5 g/dL (13.5-17.5); IMMATURE GRANULOCYTES 0.3 % (0-5); LYMPHOCYTES 12.9 % (15-50); MCH 33.3 pg (26.0-34.0); MCHC 34.7 g/dL (31.0-37.0); MEAN PLATELET VOLUME 10.2 fL (7.4-10.4); MONOCYTES 5.2 % (2-11); NEUTROPHILS 80.6 % (40-80); PLATELET COUNT 421 10x3/uL (130-400); RBC 3.75 10x6/uL (4.20-6.10); RDW 12.1 % (11.5-14.5); WBC 15.6 10x3/uL (4.8-10.8)
[2016-08-04 05:41] LABS: CALC OSMOLALITY 274 mosm/kg (275-300); CALCIUM 9.7 mg/dL (8.5-10.1); CHLORIDE - SERUM 99 mmol/L (98-107); CREATININE - SERUM 0.8 mg/dL (0.6-1.3); GLUCOSE 142 mg/dL (74-106); POTASSIUM - SERUM 4.2 mmol/L (3.5-5.1); SODIUM 135 mmol/L (136-145); UREA NITROGEN 22 mg/dL (7-18); eGFR NON AFRICAN AMERICAN > 90 mL/min (90-120)
--- NOTE | 2016-08-04 06:25 | NUR ---
ADMIN TRAMADOL 100 MG PO PER REQUEST FOR C/O LEG/FOOT PAIN LEVEL 7 ON NUMBER SCALE. NO OTHER NEEDS VOICED.
--- NOTE | 2016-08-04 07:45 | NUR ---
PATIENT RESTING IN HIS BED WITHOUT COMPLAINTS. HIS IS AT THE BEDSIDE, SHE IS PREPARING TO GO IN TO WORK. OFFERED LINENS AND SUPPLIES FOR HIM TO TAKE A SHOWER. THEY ACCEPTED HAPPILY.
[2016-08-04 07:53] VITALS: BP 116/68
[2016-08-04 11:38] VITALS: BP 120/63
--- NOTE | 2016-08-04 12:30 | NUR ---
PATIENT GIVEN ATIVAN PER REQUEST. HIS IS HERE AND THEY ARE BOTH VOICING DISSATISFACTION IN THE LACK OF INFORMATION THEY HAVE RECEIVED FROM THE DOCTORS. REPORTED THIS TO DR. HAIRSTON.
--- NOTE | 2016-08-04 15:51 | NUR ---
WOUND CARE REASSESSMENT: RIGHT FOOT TO MARTINS CONTINUES TO BE RED/PURPLE. THE EDEMA IN THE FOOT HAS DECREASED AND SKIN IS PEELING OVER THE ENTIRE UPPER FOOT. USING ELTA CREAM ALL THE DRY PEELING SKIN WAS REMOVED. NOTED A "SPONGY" SPOT ON DORSAL FOOT JUST BELOW #2 AND #3 TOES. THIS AREA IS ALSO DARKER IN COLOR (BRUISED LOOKING) BUT IS NOT TENDER TO THE TOUCH. THERE IS A SMALL OPEN AREA ON THE OUTSIDE OF FOOT MAXORB AG WAS PLACED ON THIS AREA. THE FOOT WAS PADDED WITH 4X4S AND WRAPPED WITH KERLIX. WOUND CARE WILL CONTINUE TO MONITOR.
--- NOTE | 2016-08-04 16:15 | NUR ---
PATIENT GIVEN TORADOL PER MD ORDER FOR UNRELEIVED BACK PAIN.
[2016-08-04 16:35] VITALS: BP 93/51
--- NOTE | 2016-08-04 18:28 | NUR ---
PATIENT GIVEN NORCO AND ATIVAN PER REQUEST. HE STATES THAT HIS PAIN IS RATED A 4, THE TORADOL HAS PROVIDED HIM WITH MUCH RELIEF AND HE IS FEELING MUCH BETTER. HIS IS AT THE BEDSIDE. HE HAS REQUESTED CHICKEN NOODLE SOUP AND A SANDWICH. GIVEN.
[2016-08-04 19:00] VITALS: BP 112/50
--- NOTE | 2016-08-04 21:45 | NUR ---
ADMIN SCHED MEDS. REQUESTED ZAINAB CRACKERS AND MILK. RATES PAIN LEVEL OF RIGHT FOOT/LEG AT 6 ON NUMBER SCALE.
[2016-08-05 00:09] VITALS: BP 125/58
[2016-08-05 04:32] VITALS: BP 132/69
--- NOTE | 2016-08-05 05:44 | NUR ---
CHECKED BS AT 177. ADMIN HUMALOG 2 UNITS. DENIES ANY OTHER NEEDS.
[2016-08-05 06:21] LABS: BASOPHILS 0.1 % (0-2); EOSINOPHILS 0.6 % (0-7); HEMATOCRIT 35.4 % (42.0-54.0); HEMOGLOBIN 12.1 g/dL (13.5-17.5); IMMATURE GRANULOCYTES 0.3 % (0-5); LYMPHOCYTES 12.2 % (15-50); MCH 32.9 pg (26.0-34.0); MCHC 34.2 g/dL (31.0-37.0); MCV 96.2 fL (80.0-100.0); MEAN PLATELET VOLUME 10.1 fL (7.4-10.4); NEUTROPHILS 81.8 % (40-80); PLATELET COUNT 448 10x3/uL (130-400); RBC 3.68 10x6/uL (4.20-6.10); RDW 12.1 % (11.5-14.5); WBC 17.2 10x3/uL (4.8-10.8)
[2016-08-05 06:30] LABS: CALC OSMOLALITY 279 mosm/kg (275-300); CALCIUM 9.4 mg/dL (8.5-10.1); CARBON DIOXIDE 26.1 mmol/L (21.0-32.0); CHLORIDE - SERUM 99 mmol/L (98-107); CREATININE - SERUM 0.7 mg/dL (0.6-1.3); GLUCOSE 167 mg/dL (74-106); POTASSIUM - SERUM 4.2 mmol/L (3.5-5.1); SODIUM 136 mmol/L (136-145); UREA NITROGEN 23 mg/dL (7-18); eGFR NON AFRICAN AMERICAN > 90 mL/min (90-120)
--- NOTE | 2016-08-05 07:18 | NUR ---
PT IS SITTING UP IN BED WATCHING TV, DENIES NEEDS WILL CONT TO MONITOR
[2016-08-05 07:47] VITALS: BP 125/65
[2016-08-05 11:53] VITALS: BP 103/49
--- NOTE | 2016-08-05 13:37 | NUR ---
PT IS VERY LETHARGIC, UNABLE TO WAKE PT UP LONG ENOUGH TO GET HIM TO SIGN CONSENTS FOR SURGERY. DID CHECK FSBS AND SUGAR IS UNCHANGED FROM WHEN I TREATED HIM WITH INSULIN EARLIER. WILL CONT TO MONITOR
--- NOTE | 2016-08-05 14:37 | NUR ---
PT WOKE UP FROM HIS NAP AND I WAS ABLE TO GET HIM TO SIGN HIS CONSENTS FOR PROCEDURE. PLACED ON CHART.
--- NOTE | 2016-08-05 16:05 | NUR ---
PT PREOPED AND READY TO GO TO SURGERY
--- NOTE | 2016-08-05 17:13 | NUR ---
Patient Name: MICHELLE CURRY Admission Status: ER Accout number: [id number] Admission Date: 07-27-2016 : 1950 Admission Diagnosis:CELLULITIS OF RIGHT LOWER LIMB Attending: ROSY Current LOS: 9 Anticipated DC Date: Planned Disposition: Inpatient Rehab Primary Insurance: MEDICARE A & B PLANNED EXTERNAL PROVIDER: [facility] INPAT[facility] Discharge Planning Comments: * Is the patient Alert and Oriented? Yes 0 * How many steps to enter\exit or inside your home? 2 0 * PCP DR. VIVIANA FERNANDEZ APN; [place] 0 * Pharmacy [facility] IN [place] 0 * Preadmission Environment Home Alone 0 * ADLs Independent 0 * Equipment None 0 * Other Equipment NO MEDICAL EQUIPMENT PROVIDER PREFERNCE 0 * List name and contact numbers for known caregivers / representatives who currently or will assist patient after discharge: FAVIO CHIU DTR, 0 * Community resources currently utilized None 0 * Please name any agencies selected above. NONE 0 * Additional services required to return to the preadmission environment? Yes * Can the patient safely return to the preadmission environment? Yes 0 * Has this patient been hospitalized within the prior 30 days at any hospital? No 0 CM MET WITH PT IN ROOM TO DISCUSS DISCHARGE PLANNING AND NEEDS. PT REPORTS LIVING AT HOME INDEPENDENTLY AND ALONE WITH 5 DOGS AT HOME. PT HAS NO MEDICAL EQUIPMENT AND NO OUTSIDE SERVICES ASSISTING IN THE HOME. CM DISCUSSED AVAILABILITY OF HOME HEALTH, REHAB SERVICES AND MEDICAL EQUIPMENT. PT FEELS HE MIGHT NEED REHAB BEFORE GOING HOME AND IS UNSURE OF WHAT CARE HE WILL NEED FOR HIS FOOT. CM DISCUSSED REHAB OPTIONS, PT WOULD LIKE TO BE CONSIDERED FOR INPATIENT REHAB AT [place]. CM NOTIFIED MARAL OF INPATIENT REHAB. PT WILL REQUIRE ORDERS FOR PHYSICAL THERAPY EVALUATION AND INPATIENT REHAB PRESCREENING; PT REPORTS HIS DAUTHER WILL PICK HIM UP FOR DISCHARGE HOME. IMPORTANT MESSAGE FROM MEDICARE PROVIDED AND EXPLAINED. PT INTERESTED IN INPATIENT REHAB AT [facility], WILLREQUIRE ORDERS FOR PHYSICAL THERAPY EVALUATION AND INPATIENT REHAB PRESCREENING; CM TO FOLLOW AND ASSIST NEEDED. Athletic Instructor: Gal Chopra
--- NOTE | 2016-08-05 17:52 | NUR ---
PT STILL IN SURGERY
[2016-08-05 18:13] VITALS: BP 109/85
--- NOTE | 2016-08-05 18:48 | NUR ---
PT STILL SITTING UP IN BED EATING DINNER DAUGHTER AT BEDSIDE. PT VS STILL WNL DENIES NEEDS OR ANY PAIN
[2016-08-05 19:00] VITALS: BP 116/62
--- NOTE | 2016-08-05 20:00 | NUR ---
REPORT RECEIVED AND CARE ASSUMED. VSS. LYING IN BED RESTING. RIGHT FOOT DRESSING C/D/I. STATES FOOT IS JUST STARTING TO HURT SOME. SHIFT ASSESSMENT COMPLETED PER FLOW SHEET. BED LOW, SR UP, CALL LIGHT IN REACH. WILL CONTINUE TO MONITOR.
[2016-08-06] VITALS: BP 125/61
[2016-08-06 04:00] VITALS: BP 144/83
[2016-08-06 05:19] LABS: BASOPHILS 0.2 % (0-2); EOSINOPHILS 1.4 % (0-7); HEMATOCRIT 35.2 % (42.0-54.0); IMMATURE GRANULOCYTES 0.5 % (0-5); MCH 32.9 pg (26.0-34.0); MCHC 34.1 g/dL (31.0-37.0); MCV 96.4 fL (80.0-100.0); MEAN PLATELET VOLUME 9.8 fL (7.4-10.4); MONOCYTES 6.6 % (2-11); NEUTROPHILS 74.3 % (40-80); PLATELET COUNT 440 10x3/uL (130-400); RBC 3.65 10x6/uL (4.20-6.10); RDW 12.3 % (11.5-14.5); WBC 12.3 10x3/uL (4.8-10.8)
[2016-08-06 06:01] LABS: CALC OSMOLALITY 279 mosm/kg (275-300); CALCIUM 9.4 mg/dL (8.5-10.1); CARBON DIOXIDE 28.3 mmol/L (21.0-32.0); CHLORIDE - SERUM 100 mmol/L (98-107); CREATININE - SERUM 0.8 mg/dL (0.6-1.3); GLUCOSE 133 mg/dL (74-106); POTASSIUM - SERUM 4.3 mmol/L (3.5-5.1); SODIUM 137 mmol/L (136-145); UREA NITROGEN 24 mg/dL (7-18); eGFR NON AFRICAN AMERICAN > 90 mL/min (90-120)
--- NOTE | 2016-08-06 07:26 | NUR ---
PT SITTING UP IN BED SLEEPING, NO S/S DISTRESS NOTED WILL CONT TO MONITOR
[2016-08-06 07:48] VITALS: BP 111/49
--- NOTE | 2016-08-06 10:53 | NUR ---
PT R FOOT DRESSING LEAKING ONTO BED SHEETS. PAGED DR VELAZQUEZ TO ASK WHAT TO DO ABOUT CHANGING DRESSING
--- NOTE | 2016-08-06 11:07 | NUR ---
DR VELAZQUEZ CALLED BACK AND SAID TO JUST REINFORCE DRESSING, HE WANTS TO DO COMPLETE DRESSING CHANGE WHEN HE GETS HERE THIS AFTERNOON. I JUST REPADDED WITH CLEAN 4X4S AND WRAPPED ELVIE IN [place].
[2016-08-06 12:36] VITALS: BP 111/58
--- NOTE | 2016-08-06 17:55 | NUR ---
Patient Name: MICHELLE CURRY Encounter No: [id number] : 1950 Primary Insurance: MEDICARE A & B Anticipated DC Date: 08-10-2016 Planned Disposition: Prison Facility External Planned Provider: [facility], MEDICARE REHAB BED DCP follow-up note: CM SPOKE TO TRAMAINE OF [facility] WHO REPORTS THAT FAMILY CALLED HER AND REQUESTED REHAB PLACEMENT FOR PT. CM MET WITH PT IN ROOM, DISCUSSED REHAB OPTIONS. PT REPORTS HE HAS DISCUSSED THIS WITH HIS FAMILY AND WANTS REHAB AT [facility] IT IS CLOSER TO HIS HOME AND HE CAN SMOKE THERE. CHOICE SIGNED. CM FAXED REFERRAL TO [facility], . CM WAITING ADMISSION DETERMINATION FROM [facility]. Gal Chopra, CASE MANAGEMENT
--- NOTE | 2016-08-06 17:59 | NUR ---
DR VELAZQUEZ CAME AND SAW PT AND CHANGED PACKING AND DRESSING. PT DRESSING HAS ALREADY SEEPED THROUGH WITH SEROSANG DRAINAGE. REINFORCED DRESSING. REMOVED OLD 4X4 AND CURLEX AND REPLACED WITH ADDITIONAL 4X4S AND MORE CURLEX. LEFT PACKING DR VELAZQUEZ INSERTED.
[2016-08-06 18:09] VITALS: BP 113/55
--- NOTE | 2016-08-06 18:52 | NUR ---
PT SITTING UP IN BED WATCHING TV DENIES NEEDS
[2016-08-06 19:00] VITALS: BP 125/64
--- NOTE | 2016-08-06 19:45 | NUR ---
REPORT RECEIVED AND CARE ASSUMED. VSS. DENIES ANY NEEDS. SHIFT ASSESSMENT COMPLETED PER FLOW SHEET. FAMILY VISITING. CALL LIGHT IN REACH. WILL CONTINUE TO MONITOR.
[2016-08-07] VITALS: BP 133/53
[2016-08-07 04:00] VITALS: BP 160/83
--- NOTE | 2016-08-07 04:44 | NUR ---
NORCO 10/325 MG PO GIVEN FOR LEVEL #10 PIAN IN RIGHT FOOT.
[2016-08-07 04:53] LABS: BASOPHILS 0.2 % (0-2); EOSINOPHILS 1.7 % (0-7); HEMATOCRIT 36.4 % (42.0-54.0); HEMOGLOBIN 12.3 g/dL (13.5-17.5); IMMATURE GRANULOCYTES 0.4 % (0-5); LYMPHOCYTES 18.2 % (15-50); MCH 32.7 pg (26.0-34.0); MCHC 33.8 g/dL (31.0-37.0); MCV 96.8 fL (80.0-100.0); MEAN PLATELET VOLUME 9.6 fL (7.4-10.4); MONOCYTES 5.4 % (2-11); NEUTROPHILS 74.1 % (40-80); PLATELET COUNT 467 10x3/uL (130-400); RBC 3.76 10x6/uL (4.20-6.10); RDW 12.1 % (11.5-14.5); WBC 11.5 10x3/uL (4.8-10.8)
[2016-08-07 05:06] LABS: CALC OSMOLALITY 278 mosm/kg (275-300); CALCIUM 9.2 mg/dL (8.5-10.1); CARBON DIOXIDE 28.6 mmol/L (21.0-32.0); CHLORIDE - SERUM 100 mmol/L (98-107); CREATININE - SERUM 0.7 mg/dL (0.6-1.3); GLUCOSE 128 mg/dL (74-106); POTASSIUM - SERUM 4.2 mmol/L (3.5-5.1); SODIUM 137 mmol/L (136-145); UREA NITROGEN 20 mg/dL (7-18); eGFR NON AFRICAN AMERICAN > 90 mL/min (90-120)
[2016-08-07 08:06] VITALS: BP 122/56
--- NOTE | 2016-08-07 11:03 | NUR ---
AM ROUNDS - PT IN BED AWAKE AND ALERT. PT HAD DRESSING TO RIGHT FOOT. FOOT IS RED AND SWOLLEN. DRESSING HAS YELLOW DRAINAGE ON IT. PT IS UP AD DAVID WITH THE USE OF A WALKER. ON RA. NO NEEDS AT THIS TIME. WILL CONTINUE TO MONITOR
--- NOTE | 2016-08-07 12:06 | NUR ---
Patient Name: MICHELLE CURRY Encounter No: [id number] : 1950 Primary Insurance: MEDICARE A & B Anticipated DC Date: 08-10-2016 Planned Disposition: Retirement Facility External Planned Provider: [facility], MEDICARE REHAB BED DCP follow-up note: CM CALLEDA AND SPOKE TO MYNOR AT [facility], , SHE COULD NOT LOCATE REHAB REFERRAL FOR PT. CM REFAXED REFERRAL TO [facility], . CM WAITING ADMISSION DETERMINATION FROM [facility]. Gal Chopra, CASE MANAGEMENT
[2016-08-07 12:12] VITALS: BP 114/60
[2016-08-07 15:56] VITALS: BP 118/49
[2016-08-07 19:00] VITALS: BP 130/64
--- NOTE | 2016-08-07 19:30 | NUR ---
ALERT/AWAKE WATCHING TV. ORIENTED X 4. IN CONTACT ISOLATION FOR STAPH IN RT FOOT WOUND. IV IN L FA INTACT SL. HAS CALL LIGHT AND BEDSIDE TABLE WITH PERSONAL ITEMS IN REACH.
--- NOTE | 2016-08-07 21:59 | NUR ---
ADMIN SCHED MEDS AND [facility] 10 PO PER REQUEST FOR C/O RT FOOT PAIN, DESCRIBED ACHING. REQUESTED SOME ZAINAB CRACKERS AND APPLESAUCE.
[2016-08-08] VITALS: BP 121/62
--- NOTE | 2016-08-08 01:00 | NUR ---
ADMIN HUMALOG 2 UNITS SC FOR BS 155. NO OTHER NEEDS VOICED.
[2016-08-08 04:00] VITALS: BP 129/54
--- NOTE | 2016-08-08 05:45 | NUR ---
ADMIN 2 UNITS HUMALOG FOR BS 152. NO OTHER NEEDS VOICED.
[2016-08-08 06:27] LABS: BASOPHILS 0.2 % (0-2); EOSINOPHILS 1.8 % (0-7); HEMATOCRIT 34.8 % (42.0-54.0); HEMOGLOBIN 11.7 g/dL (13.5-17.5); IMMATURE GRANULOCYTES 0.5 % (0-5); LYMPHOCYTES 21.5 % (15-50); MCHC 33.6 g/dL (31.0-37.0); MCV 95.1 fL (80.0-100.0); MEAN PLATELET VOLUME 9.8 fL (7.4-10.4); MONOCYTES 7.2 % (2-11); NEUTROPHILS 68.8 % (40-80); PLATELET COUNT 421 10x3/uL (130-400); RBC 3.66 10x6/uL (4.20-6.10); RDW 12.1 % (11.5-14.5)
[2016-08-08 06:30] LABS: WBC 8.6 10x3/uL (4.8-10.8)
--- NOTE | 2016-08-08 08:25 | NUR ---
AM ROUNDS - PT APEARS TO BE SLEEPING ON BACK WITH EQUAL AND NON LABORED BREATHING. LEFT FA, SL. PT IS CONTACT ISOLATION. WILL CONTINUE TO MONITOR
[2016-08-08 08:26] VITALS: BP 138/64
[2016-08-08 11:58] VITALS: BP 129/64
[2016-08-08 15:53] VITALS: BP 125/57
--- NOTE | 2016-08-08 19:30 | NUR ---
SITTING UP IN BED, AAOX3, SKIN WARM AND DRY, RESP UNLABORED, IV PATENT TO LEFT FOREARM, DRESSING INTACT TO RIGHT FOOT, NO DISTRESS NOTED
[2016-08-08 20:20] VITALS: BP 122/62
[2016-08-09 00:09] VITALS: BP 115/64
[2016-08-09 04:15] VITALS: BP 115/59
[2016-08-09 07:23] VITALS: BP 124/61
[2016-08-09] MEDS ORDERED: VIBRAMYCIN 100100 MG PO (09:35)
[2016-08-09] MEDS ORDERED: NEURONTIN 400400 MG PO (09:37)
[2016-08-09] MEDS ORDERED: FLORANEX / LACT1 TAB PO (09:38)
[2016-08-09] MEDS ORDERED: NUCYNTA100 MG PO (10:00)
[2016-08-09 12:09] VITALS: BP 125/59
--- NOTE | 2016-08-09 15:27 | NUR ---
ALERT AND ORIENTED X4. SITTING UP ON SIDE OF BED. FAMILY AT BEDSIDE. DRESSING CHANGE SUPPLIES PROVIDED FOR 1 WEEK. DISCHARGE WRITTEN PRESCRIPTION PROVIDE. DISCHARGE INSTRUCTION PROVIDED VERBALLY AND WRITTEN. DISCHARGE PAPERS SIGNED ON CHART. DC LT FA IV TIP INTACT. ESCORT TO RIDE VIA WHEELCHAIR. REMAIN FREE FROM INJURY.
--- NOTE | 2016-08-09 19:26 | NUR ---
LATE [id number] CM MEET W/ THE PATIENT AND HIS DAUGHTERS , LIAN AND FAVIO AT THE BEDSIDE. DISCUSSED DISCHARGE OPTIONS. CM LEFT FOR FAMILY TO DISCUSS WITH ONE ANOTHER. LIAN, WHO IS A NURSE, STATED AFTER WATCHING THE DRESSING CHANGE WITH THE PRIMARY THAT SHE WOULD TAKE THE PATIENT HOME WITH HER AND HOME HEALTH. PATIENT CHOICE FORM OBTAINED. [facility] CHOSEN FIRST THEN [facility]. TC TO [facility] & SPOKE WITH ON-CALL NURSE, Radha Rodriguez. SHE SPOKE WITH THE [employer]ILROOM MESSENGER & STATED THE LOCATION WAS OUT OF NETWORK. PATIENT'S DAUGHTER ALSO SPOKE WITH RADHA. SHE REFERRED CM TO [facility] AT [phone]. TC WITH NO ANSWER. TC TO [facility]. SPOKE WITH GINI. REFERRED TO [facility] IN [place] AT [phone]. DISCUSSED THE CASE FOR 35 MINUTES. FAXED REFERRAL. PLAN FOR PATIENT TO BE SEEN 08/10/16. ADVISED PATIENT OF PROVIDER.
--- NOTE | 2016-08-10 10:52 | NUR ---
Late Entry TC to [facility] in [place], [place]. JAIRO spoke with Demetrice to advise that patient had been discharged to his daughter's home with home health 08/09. He had been scheduled for possible skilled admission. Patient and family are aware if the need should arise in the next 30 days, he could be admitted to [facility] if necessary. JAIRO telephoned [facility] office. Spoke with Kristi. They have the necessary information and patient is scheduled to be seen today.
== END 2016-08-09 15:37 | disposition home health service (06) | DRG 579 ==
LOC: D.ER 18:08 → D.M2 21:09 → OBSVTIME 21:09 → D.M2 07-27 12:58
PROVIDERS: Emergency Medicine; Internal Medicine Nephrology; Surgery; ADMIT Family Medicine
PROC: 0J9Q0ZZ Drainage of Right Foot Subcutaneous Tissue and Fascia, Open Approach (ICD-10-PCS; principal; 2016-08-05 12:00)
DX: L03.115 Cellulitis of right lower limb (principal); G93.40 Encephalopathy, unspecified; E87.1 Hypo-osmolality and hyponatremia; E11.40 Type 2 diabetes mellitus with diabetic neuropathy, unspecified; I10 Essential (primary) hypertension; I25.10 Atherosclerotic heart disease of native coronary artery without angina pectoris; E78.5 Hyperlipidemia, unspecified; J44.9 Chronic obstructive pulmonary disease, unspecified; Z86.73 Personal history of transient ischemic attack (TIA), and cerebral infarction without residual deficits; Z72.0 Tobacco use

== ENCOUNTER → 2017-01-27 14:00 | Outpatient (CLI) | payer MEDICARE ==
[2016-07-27 12:16] VITALS: BMI 30.2
[~2017-01-27 14:00] MED LIST changes: +FLORANEX / LACT1 TAB PO; +NEURONTIN 400400 MG PO; +NORCO 7.5/325 T1 TA1 PO; +NUCYNTA100 MG PO; +VIBRAMYCIN 100100 MG PO
== END | disposition home or self-care (01) ==
LOC: D.US 01-25 13:30
DX: I65.23 Occlusion and stenosis of bilateral carotid arteries (principal)

== ENCOUNTER → 2018-08-10 15:01 | Outpatient (CLI) | payer MEDICARE ==
[2016-07-27 12:16] VITALS: BMI 30.2
== END | disposition home or self-care (01) ==
LOC: D.US 08-09 11:00
PROVIDERS: ATTEND Internal Medicine Cardiovascular Disease
DX: I65.23 Occlusion and stenosis of bilateral carotid arteries (principal)

== ENCOUNTER → 2018-10-10 09:47 | Outpatient (CLI) | payer MEDICARE ==
[2016-07-27 12:16] VITALS: BMI 30.2
--- NOTE | 2018-10-14 11:14 | EC ---
PATIENT:MICHELLE CURRY DATE OF SERVICE: 10/10/18 SEX: M MEDICAL RECORD: [id number] DATE OF : [birth year] LOCATION:[facility] AGE OF PATIENT: 68 ADMISSION DATE: 10/10/18 REFERRING PHYSICIAN: INTERPRETING PHYSICIAN: DIRK LEVIN MD ECHOCARDIOGRAM REPORT ECHO CHARGES 4 ECHO COMPLETE Date: 10/10/18 CLINICAL DIAGNOSIS: ANGINA/FROST H/O DVT/PVD/HTN ECHOCARDIOGRAPHIC MEASUREMENTS (adult normal given) AC root (d.<3.7cm) 3.6 cm LV Septum d (<1.2 cm> 1.0 cm Valve Excursion 1.5 cm LV Septum (systole) 2.2 cm Left Atria (s.<4.0cm> 4.8 cm LVPW d(<1.2cm) 1.4 cm RV (d.<2.3cm) 3.3 cm LVPW (sytole) 2.5 cm LV diastole(<5.6CM) 5.9 cm MV E-F(>70mm/sec) cm LV systole 3.3 cm LVOT Diameter 2.3 cm MV exc.(>10mm) cm Est.ejection fraction (50-75%) % DOPPLER: LVIT cm/sec A 102 cm/sec E 63.0 cm/sec LA cm/sec RVSP 15.0 mmHg LVOT 105 cm/sec AOP1/2T m/s Asc. Ao 129 cm/sec RVOT 113 cm/sec RA cm/sec PA 125 cm/sec AV Gradient Peak 6.7 mmHg AV Mean 3.1 mmHg AV Area 2.5 cm MV Gradient Peak 4.4 mmHg MV Mean 1.7 mmHg MV Area cm COMMENTS: OP - HC Hydroelectric Machinery Mechanic: Tami HERNANDEZ [place] Inspector Rough Castings: 1 Dr. Levin TAPE# PACS Pericardial Effusion N DATE OF SERVICE: 10/10/2018 FINDINGS: 1. Left ventricular chamber size is at upper limits of normal to mildly dilated. Left ventricular systolic function is preserved at 55%. 2. Left atrium is enlarged at 4.8 cm. Right atrium and right ventricular chamber sizes are as well fywz-sl-aacdgnvhdz dilated. 3. Valvular structures have normal structure and motion. 4. Doppler interrogation only reveals trace mitral regurgitation. No other valvular insufficiency or stenosis. Pulmonary systolic pressure is normal, ECHOCARDIOGRAM REPORT [id number] MICHELLE CURRY JR estimated at 15 mmHg. 5. No evidence of pericardial effusion or left ventricular thrombus. TRANSINT:[id number] Voice Confirmation ID: [id number] DOCUMENT ID: [id number] DIRK LEVIN MD at 1114 CC: [id number] DICTATION DATE: 10/10/18 1606 GRE[employer] LABORER: 10/10/18 1644 DEP CLI 10/10/18 [facility] [address] [place] [address]
--- NOTE | 2018-10-14 11:14 | ST ---
PATIENT:MICHELLE CURRY JR MEDICAL RECORD: [id number] SEX: M LOCATION:[facility] ORDER #: ADMISSION DATE: 10/10/18 AGE OF PATIENT: 68 REFERRING PHYSICIAN: INTERPRETING PHYSICIAN: DIRK WU MD DATE OF SERVICE: 10/10/2018 PROCEDURE: Nuclear stress test. INDICATION: Angina, shortness of breath, hypertension, hyperlipidemia, and peripheral vascular disease. The patient was exercised on standard Lexiscan protocol with 28 mCi of sestamibi injected at peak stress and 9 mCi was used previously for rest images. FINDINGS: Gated SPECT reveals preserved ejection fraction at 56% with decreased thickening and brightening throughout the inferior segments. SPECT imaging Cardiolite was used as myocardial perfusion agent. There is a gjobzcuc-lr-ugzni area of mixed perfusion inferiorly and apically. This is partially fixed and partially reversible. It includes basal, mid, apical inferior segments as well as the apex itself. There is reversibility throughout the entire defect. The remaining segments were with homogeneous uptake at rest and stress. OVERALL IMPRESSION: This is an intermediate risk nuclear stress test with a large area of reversibility and fixed perfusion defect inferiorly and apically, suggestive of previous inferior myocardial infarction and continued perioperative ischemia that would explain his symptomatology. We would proceed with coronary angiography as followup study. TRANSINT:[id number] Voice Confirmation ID: [id number] DOCUMENT ID: [id number] DIRK WU MD at 1114 CC: VISH DEL CASTILLO MD [id number] DICTATION DATE: 10/11/18 1019 JEWEL BEARING BROACHER: 10/11/18 2239 DEP CLI 10/10/18 [facility] [id number] [place] [address]
== END | disposition home or self-care (01) ==
LOC: D.HCCARDIO 09:47
PROVIDERS: ATTEND Internal Medicine Interventional Cardiology
DX: I10 Essential (primary) hypertension (principal); I25.10 Atherosclerotic heart disease of native coronary artery without angina pectoris

== ENCOUNTER → 2019-10-17 14:17 | Outpatient (CLI) | payer MEDICARE ==
[2016-07-27 12:16] VITALS: BMI 30.2
== END | disposition home or self-care (01) ==
LOC: D.US 08-23 13:30
PROVIDERS: ATTEND Internal Medicine Cardiovascular Disease
DX: I65.29 Occlusion and stenosis of unspecified carotid artery (principal)